=== PATIENT | male | born 1960 | race Caucasian/White ===

== ENCOUNTER 2016-04-23 02:32 | Inpatient (IN) | payer BC ==
[~2016-04-23] VITALS: Ht 188 cm; Wt 146.2 kg
--- NOTE | ~2016-04-23 | DS ---
PATIENT'S NAME: JUAN PABLO VALVERDE [facility] AGE: 55 Y [address] ROOM: [place] [address] LOCATION: GPCU ADMIT DATE: 04/23/2016 Discharge Summary DISCHARGE DATE: 04/24/2016 FAMILY PHYSICIAN: Jose Zhang MD ATTENDING PHYSICIAN: Theresa Otero PRIMARY DIAGNOSES: 1. Coronary artery disease, status post PTCI with stent. 2. Chest pain. 3. Essential hypertension. 4. Morbid obesity. 5. Generalized anxiety. 6. Tobaccoism. OPERATIONS OR PROCEDURES: Cardiac catheterization was performed on 04/23/[address] Radford with high-grade LAD lesions, status post drug-eluting stent. HISTORY OF PRESENTING ILLNESS AND REASON FOR ADMISSION: Please refer to the H and P dictated on 04/23/2016. HOSPITAL COURSE: The patient was admitted to the hospital as noted above with a presumptive diagnosis of chest pain. His laboratory markers including cardiac enzymes and EKG were initially negative. There was high clinical suspicion, however, given his classic clinical presentation and a number of risk factors. He did undergo echocardiography, which was unremarkable. He remained chest pain free over the course of his hospital stay. Cardiology was consulted and it was recommended to undergo cardiac catheterization. A high-grade proximal LAD lesion was identified as described above. PCI was performed with drug-eluting stent placement. He was placed on aspirin therapy, statin therapy, beta-yuridia therapy, and Brilinta. He tolerated that well. By the following day, he was ambulating in the hallways independently and completely asymptomatic. At that point, it was felt he would be stable enough with plans for close clinical followup, strict medication adherence, and attention to healthy lifestyle habits including quitting smoking. He did receive extensive quit-smoking counseling here. DISCHARGE INSTRUCTIONS: DIET: Cardiac prudent as tolerated. ACTIVITY: As tolerated. He will engage in outpatient cardiac rehab. MEDICATIONS: 1. Aspirin 81 mg p.o. daily. 2. Brilinta 90 mg p.o. b.i.d. 3. Atorvastatin 40 mg p.o. at bedtime. PATIENT'S NAME: JUAN PABLO VALVERDE [facility] AGE: 55 Y [address] ROOM: [place] [address] LOCATION: GPCU ADMIT DATE: 04/23/2016 Discharge Summary DISCHARGE DATE: 04/24/2016 FAMILY PHYSICIAN: Jose Zhang MD ATTENDING PHYSICIAN: Theresa Otero 4. Nicotine patch 14 mg apply and change daily. 5. Toprol-XL 12.5 mg p.o. daily. FOLLOWUP: He will follow up with Dr. Zhang in 3 to 5 days. He will have outpatient followup with Cardiology in 2 to 3 weeks. CONDITION ON DISCHARGE: Good. Total time spent on discharge process, 45 minutes. KATHY J MD GOVIND BROOKS/amol /[id number] d: 04/25/16 0636 t: 04/26/16 1451, DISCHARGE SUMMARY
--- NOTE | ~2016-04-23 | ECHO ---
Transthoracic Echocardiography Report (TTE) Demographics Patient Name JUAN PABLO VALVERDE Date of Study 04/23/2016 Patient Number [id number] Visit Number [id number] Date of 1960 Room Number G6306 Accession Number [id number] Gender Male Age 55 year(s) Referring Leatha Paniagua MD [employer] Carlos Alberto Zapata [facility] Physician Physician Interpreting Vincenzo Granados Photo Journalist Physician MD Supervising Ordering Physician Shanna Dexter MD/KIMBERLY NAGY Nurse Stress Workday Director Conclusions Contractility Score Summary Normal Left Ventricular contractility was noted. Summary Normal LV/RV size and systolic function. The estimated left ventricular ejection fraction is 60%. Diastolic assessment reveals Grade I diastolic dysfunction. Moderate concentric left ventricular hypertrophy. The left atrium is mildly dilated. Procedure Type of Study TTE procedure:2D Echocardiogram, M-Mode, Doppler , Color Doppler. Procedure Date Date: 04/23/2016 Start: 07:34 AM Study Location: Inpatient Portable Technical Quality: Adequate visualization Indications:Chest pain. Patient Status: Routine Rhythm: Within normal limits HR: 59 bpm BP: 144/85 mmHg M-Mode/2D Measurements LV Diastolic Dimension: 5.15 cm LV Systolic Dimension: 2.68 cm LV Septum Diastolic: 1.58 cm LV PW Diastolic: 1.4 cm AO Root Dimension: 2.4 cm Cardiac Output: 5.31 l/min AV Cusp Separation: 2.3 cm RV Diastolic Dimension: 2.91 cm LA volume: 108 ml LVOT: 2.4 cm RV Base: 3.74 cm LVOT VTI: 19.9 cm RV Mid: 2.98 cm LV Stroke volume: 89.98 ml TAPSE: 2.17 cm TDI-S': 11.4 cm/s Doppler Measurements AV Peak Velocity: 1.24 m/s MV Peak E-Wave: 0.59 m/s AV Peak Gradient: 6.15 mmHg MV Peak A-Wave: 0.62 m/s AV Mean Gradient: 3 mmHg MV E/A Ratio: 0.96 LVOT Peak Velocity: 1.03 m/s MV P1/2t: 59 msec TR Gradient:25 mmHg PV Peak Velocity: 1.07 m/s Estimated RAP:10 mmHg PV Peak Gradient: 4.58 mmHg Estimated RVSP: 35 mmHg Estimated PASP: 35 mmHg E' Septal Velocity: 0.06 m/s A' Septal Velocity: 0.1 m/s E' Lateral Velocity: 0.1 m/s A' Lateral Velocity: 0.15 m/s Findings Left Ventricle Diastolic assessment reveals Grade I diastolic dysfunction. Moderate concentric left ventricular hypertrophy. Right Ventricle Normal right ventricle structure and function. Left Atrium The left atrium is mildly dilated. Right Atrium Normal right atrial size. IVC measures 2.08 cm with inspiratory collapse. Mitral Valve Normal mitral valve structure and function. Trace MR. Aortic Valve Normal aortic valve structure and function. Tricuspid Valve Trivial tricuspid regurgitation by color Doppler. Pulmonic Valve Normal pulmonic valve structure and function. Pericardial Effusion No evidence of pericardial effusion. Miscellaneous Visualized portions of the aortic root and ascending aorta appear normal in size. Pleural Effusion No evidence of pleural effusion. Signature dtt: ARCENIO HESS dtd: 04/23/16 0734 Physician Self Edit
--- NOTE | ~2016-04-23 | CATH ---
Cardiac Diagnostic + PCI Report Demographics Patient Name NICOLLE Paniagua Gender Male Date of 1960 Age 55 year(s) Patient Number [id number] Date of Study 04/23/2016 Visit Number [id number] Room Number G6306 [place] [id number] Ht 187.96 cm Wt 146.51 kg Referring Leatha Paniagua MD Primary Physician Physician Performing [facility] Secondary Physician Physician Roberta NAGY Diagnostic [facility] Assisting Physician Physician Roberta NAGY Interventional [facility] Physician Scale Mechanic Physician Roberta NAGY Findings and Conclusions Diagnostic Findings and Conclusion 1 vessel obstructive CAD, proximal LAD 85% lesion in setting of unstable angina. Diagnostic Recommendations PCI of proximal LAD Interventional Findings and Conclusion s/p PCI of Prox LAD with BRIDGETT. Interventional Recommendations Aggressive medical therapy for coronary artery disease. Patient will be observed overnight. Hydration and followup creatinine. Patient has been instructed to not lift anything more than 5 pounds for 1 week. I would like to thank Dr. Dang for the opportunity to participate in the care of Mr. Gutiérrez. Dual Anti-platelet therapy. Smoking Cessation teaching and counseling done . Optimization of medical therapy as an outpatient. Referral to Cardiac Rehabilitation now and at discharge . I will plan on seeing the patient back in 2 week(s) in clinic. Procedure Description The patient was brought to the diagnostic cardiac catheterization-EP laboratory in the fasting, non-sedated state. Informed consent was obtained in the written and verbal form after the risks and benefits were explained. The patient had no further questions and agreed to proceed. The planned puncture-incision site(s) were shaved and prepped with ChloraPrep and draped in the usual sterile manner. Conscious sedation, supplemental oxygen, and pain control medications were delivered by a registered nurse under physician guidance. Surface ECG rhythm, blood pressure measurement, and pulse oximetry were monitored throughout the procedure. Arterial access. The access site was infiltrated with lidocaine. The vessel was entered with the Seldinger technique. A sheath was advanced into the vessel and used for catheter placement. Selective left coronary angiography. A catheter was advanced into the left coronary vessel ostium under Fluoroscopic guidance. Contrast was injected by hand. Images were obtained in multiple projections. Selective right coronary angiography. A catheter was advanced into the right coronary vessel ostium under fluoroscopic guidance. Contrast was injected by hand. Images were obtained in multiple projections. Left heart catheterization. A catheter was advanced across the aortic valve to the left ventricle under fluoroscopic guidance. Resting hemodynamics were obtained. Stent Placement: A guiding catheter was used to intubate the vessel. A 0.14 wire was used to cross the lesion. A Drug Eluting Stent was placed. Post placement angiograms were performed. Arterial artery hemostasis was achieved. The patient was transferred to a regular nursing floor via cart accompanied by a nurse. The patient left the laboratory in stable condition. Diagnostic Cath Status: Urgent Interventional Cath Status: Urgent Procedure Procedure Type Diagnostic procedure:Angiography:, Coronary Angios w/[facility] PCI procedure:Drug Eluting Coronary Stent:, LAD Indications: Chest pain. The procedure was explained in detail to the patient. Risks, complications and alternative treatments were reviewed. Written consent was obtained. Medications Reviewed with Patient prior to Procedure. Angiographic Findings Dominance: Right Cardiac Arteries and Lesion Findings LMCA: Normal (0% Stenosis). LAD: Abnormal.prox 85%, mid 60% diag 20% ostial Lesion on Prox LAD: Proximal subsection.85% stenosis reduced to 0%. Pre procedure BRET III flow was noted. Post Procedure BRET III flow was present. The guidewire cross was successful.A good run off was present.The lesion was diagnosed as a moderate risk lesion.Culprit lesion. Devices used - Runthrough NS .014 x 180. Number of passes: 1. - Trek Balloon 2.5 x 25. 1 inflation(s) to a max pressure of: 8 lucy. - Promus Premier 3.0 x 32 Stent. 2 inflation(s) to a max pressure of: 14 lucy. - NC Emerge Balloon 3.25 x 12. 2 inflation(s) to a max pressure of: 18 lucy. Lesion on Mid LAD: Mid subsection.60% stenosis . Lesion on 1st Diag: Ostial.20% stenosis . LCx: Abnormal.10% mid OM 10% Lesion on Prox CX: Proximal subsection.10% stenosis . Lesion on 1st Ob Bobbi: Ostial.10% stenosis . RCA: Abnormal.10% mid PL 10% PDA 30% mid Lesion on Mid RCA: Mid subsection.10% stenosis . Lesion on R PDA: Mid subsection.30% stenosis . Lesion on 1st RPL: Proximal subsection.10% stenosis . Coronary Tree Procedure Data Procedure Date Date: 04/23/2016Start: 01:23 PMEnd: 01:59 PM Entry Locations - Retrograde Percutaneous access was performed through the Right Radial artery (Primary location). A 6 Fr sheath was inserted. Hemostasis was successfully obtained using Mechanical Compression. Closure Comments: 20 cc air in r band by huan . Procedure Medications Order and Administration + + + + + !Time !Medication !Dosage !Route ! + + + + + !04/23/2016 01:13 !Versed !1 mg !I.V. ! !PM ! ! ! ! + + + + + 04/23/2016 01:26 !Radial Verapamil !2.5 mg !I.A. ! !PM ! ! ! ! + + + + + 04/23/2016 01:26 !Fentanyl !25 mcg !I.V. ! !PM ! ! ! ! + + + + + !04/23/2016 01:27 !Heparin (ACC_3) !5000 units !I.V. bolus ! !PM ! ! ! ! + + + + + 04/23/2016 01:37 !Angiomax (Bivalirudin) !110 mg !I.V. bolus ! !PM !(ACC_5) ! ! ! + + + + + 04/23/2016 01:37 !Angiomax (Bivalirudin) !1.75 mg/kg/hr!I.V. drip ! !PM !(ACC_5) ! ! ! + + + + + 04/23/2016 01:41 !Fentanyl !25 mcg !I.V. ! !PM ! ! ! ! + + + + + !04/23/2016 01:55 !Brilinta (Ticagrelor) !180 mg !P.O. ! !PM !(ACC_20) ! ! ! + + + + + Devices Used - A5 Fr. BS JR 4 Diag. Catheterwas used for:Right coronary angiography. - A5 Fr. BS JL 3.5 Diag. Catheterwas used for:Left coronary angiography. - A6 Fr. XBLAD 3.5 Guide Catheterwas used for:LAD Intervention. Contrast Material - Isovue 08562 ml Fluoroscopy Time: Diagnostic: 6:42 minutes. Total: 6:42 minutes. Fluoroscopy Dose: Diagnostic: 1230 mGy. Total: 1230 mGy. Estimated Blood Loss: 10 ml. Additional [facility] PCI Information PCI Indication:PCI for high risk Non-STEMI or unstable angina. Medical History Allergies - Other:(tetracycline). Risk Factors The patient risk factors include:obesity, physical activity, family history of premature CAD appeared at age 40, last creatinine: 0.9 mg/dl, creatinine clearance: 189.92 ml/min and Current/Recent(w/in 1 year) tobacco use. Admission Data Admission Date: 04/23/2016 Admission Time: 03:48 AM Admit Source: [facility] facility Insurance Payors: Private health insurance. Admission Medications + +------+------+---------+---------+ + + !Medication !Dosage!Times !Last !Last !Administered !Comments ! ! ! !Per !Delivery !Delivery ! ! ! ! ! !Day !Date !Time ! ! ! + +------+------+---------+---------+ + + !Aspirin (any) ! ! ! ! ! ! ! + +------+------+---------+---------+ + + !Statin (any) ! ! ! ! ! ! ! + +------+------+---------+---------+ + + !Low Molecular ! ! ! ! ! ! ! !Weight Heparin! ! ! ! ! ! ! !(any) ! ! ! ! ! ! ! + +------+------+---------+---------+ + + !Nitrates (iv ! ! ! ! ! ! ! !or buccal) ! ! ! ! ! ! ! + +------+------+---------+---------+ + + Clinical Evaluation Leading to Procedure - The patient's CAD presentation was assessed as: Unstable angina. - The patient's anginal syndrome during the past two weeks was assessed as: Class III according to the [place] Cardiovascular Society Classification System (CCS). Anti-anginal medications were prescribed during the past two weeks. The medication is: Long Acting Nitrates. - The patient has been in a state of heart failure within the past two weeks. - The patient's heart failure status was assessed as NYHA Class II. Hemodynamics Condition: Rest O2 Consumption: Estimated: 311.03Heart Rate: 67 bpm Pressures (mmHg) +-----+ + !Site !Pressure ! +-----+ + !LV !139/6 ,14 ! +-----+ + !LV !146/9 ,16 ! +-----+ + !AO !129/74 (101) ! +-----+ + !LV !146/8 ,16 ! +-----+ + !AO !151/98 (116) ! +-----+ + Valve Gradients and Areas + +---------+---------+---------+ +---------+ + !Valve !Peak !Mean !Area !Index !Flow !Source ! + +---------+---------+---------+ +---------+ + !Aortic !18 !14 ! ! ! ! ! + +---------+---------+---------+ +---------+ + !Aortic !18 !14 ! ! ! ! ! + +---------+---------+---------+ +---------+ + Shunts Oxygen Values O2 Capacity 213.52 O2 Consumption 311.03 Signatures dtt: ROBERTA HESS dtd: 04/23/16 1323 Physician Self Edit
--- NOTE | ~2016-04-23 | CON ---
PATIENT'S NAME: JUAN PABLO VALVERDE [facility] AGE: 55 Y [address] ROOM: [place] [address] LOCATION: GPCU ADMIT DATE: 04/23/2016 Consultation DISCHARGE DATE: FAMILY PHYSICIAN: Jose Zhang MD ATTENDING PHYSICIAN: KHANH BANUELOS DATE OF CONSULTATION: 04/23/2016 REFERRING PHYSICIAN: ARCENIO HESS MD CARDIOLOGY CONSULTATION REQUESTING PROVIDER: Dr. Dang. REASON FOR CONSULTATION: Unstable angina. HISTORY OF PRESENTING ILLNESS: The patient is a very pleasant, 55-year-old male, who is obese. He has a family history of premature coronary artery disease and extensive tobacco use. The patient reports he has had about 6 episodes of chest tightness over the past 48 hours, off and on. One of them was quite severe and lasted about 15 minutes, and it radiates to the jaw as well as to the left arm and associated with dizziness, and finally ended up coming to the emergency room. He does not have any other chest pain at this time. He ruled out IL. CPK and troponin are okay. He reports that prior to this episode, he has never had anything similar to the episodes of chest pain. He currently has no shortness of breath. No PND, orthopnea, or significant lower extremity edema. He does have recurrent episodes of prostatitis for which he takes Bactrim. He also reports snoring at night and feeling very fatigued. He does have daytime headaches off and on. He also reports significant fatigue over the past week. He has been exerting as usual. No unusual activity. No nausea or vomiting. Good appetite. He initially presented to [facility] with chest tightness and then he ended up transferring here for further workup. REVIEW OF SYSTEMS: A 10-point review of systems was discussed with the patient and pertinent positives and negatives mentioned in the history of presenting illness. HOME MEDICATIONS: BuSpar, Cymbalta, and Bactrim for prostatitis. PAST MEDICAL HISTORY: Prostatitis, arthritis, and anxiety. SOCIAL HISTORY: A 45 pack-year smoking history. No alcohol or illicit drug abuse. He is a PATIENT'S NAME: JUAN APBLO VALVERDE [facility] AGE: 55 Y [address] ROOM: [place] [address] LOCATION: [facility] ADMIT DATE: 04/23/2016 Consultation DISCHARGE DATE: FAMILY PHYSICIAN: Jose Zhang MD ATTENDING PHYSICIAN: KHANH BANUELOS A sound truck operator. FAMILY HISTORY: Positive for premature coronary artery disease. His father had a heart attack in his 40s. PHYSICAL EXAMINATION: VITAL SIGNS: His blood pressure is 136/94, afebrile, 97.8, pulse is 76, O2 sats are 94% on room air, and respirations are 16. GENERAL: The patient is not in any apparent distress. He is alert and oriented x3. HEENT: Head; atraumatic and normocephalic. Eyes; no xanthelasmas. Sclerae white. Mucous membranes are moist. NECK: Supple. HEART: S1 and S2. Regular rate and rhythm. No murmurs, gallops, or rubs. LUNGS: Clear to auscultation bilaterally. ABDOMEN: Obese. Nondistended. Bowel sounds positive. EXTREMITIES: No significant lower extremity edema. NEUROLOGIC: Able to move all extremities against gravity. MUSCULOSKELETAL: No joint tenderness or muscle aches. PSYCHIATRIC: Normal affect and mood. LABORATORY AND IMAGING DATA: EKG; sinus bradycardia, no significant ST depression suggestive of ischemia. Chest x-ray, no acute cardiopulmonary process. Labs: Sodium 140, potassium 4.1, chloride 108, CO2 of 24, BUN 11, creatinine 0.9, glucose 98, triglycerides 152, and LDL 68. A1c 5.9, and TSH 2.1. Echocardiogram, normal LV systolic function, mild diastolic dysfunction, mild left atrial enlargement, and no significant valvular disease. IMPRESSION AND PLAN: 1. Unstable angina. 2. Morbid obesity. 3. History of tobacco use. PLAN: 1. Plan at this time given his recurrent episodes of typical anginal symptoms with chest tightness on the left side radiating to the arm as well as the jaw and lasting for about 10 to 15 minutes and having about 6 episodes in the last 2 days. At this point, he does meet criteria for new-onset chest discomfort as well as recurrent chest pain very suggestive of unstable angina. The best way to proceed at this time would be a heart catheterization and possible percutaneous coronary intervention (PCI). If he has a moderate stenosis, then we will do fractional flow reserve (FFR) at that time. He does not have any bleeding issues, and he PATIENT'S NAME: JUAN PABLO VALVERDE [facility] AGE: 55 Y [address] ROOM: [place] [address] LOCATION: [facility] ADMIT DATE: 04/23/2016 Consultation DISCHARGE DATE: FAMILY PHYSICIAN: Jose Zhang MD ATTENDING PHYSICIAN: KHANH BANUELOS is a good candidate for dual antiplatelet therapy (DAPT) if it is necessary. 2. Morbid obesity. Reiterated about the importance of dietary restriction. 3. Reiterated the importance of abstaining from tobacco and that this increases the risk of heart attacks and strokes as well as several cancers. He does have some symptoms of snoring as well as fatigue and daytime headaches, consider outpatient evaluation for obstructive sleep apnea. Thank you very much for allowing us to participate in the care of Mr. Juan Pablo Valverde. ARCENIO HESS MD AT/modl /[id number] d: 04/23/16 1845 t: 04/24/16 1519, CONSULTATION REPORT
--- NOTE | ~2016-04-23 | HP ---
PATIENT'S NAME: JUAN PABLO VALVERDE [facility] [place] AGE: 55 Y [address] ROOM: [address] [address] LOCATION: GPCU ADMIT DATE: 04/23/2016 History & Physical DISCHARGE DATE: FAMILY PHYSICIAN: Jose Zhang MD ATTENDING PHYSICIAN: KHANH BANUELOS DATE OF SERVICE: CHIEF COMPLAINT: Chest pain. HISTORY OF PRESENT ILLNESS: 55-year-old gentleman with past medical history of arthritis, presented to [facility] with chest tightness, which started yesterday sudden in onset, located on the left side 6 x 10 radiates to the neck as well as arms associated with numbness as well as dizziness lasted for 15-20 minutes, multiple episodes during the day. This is also associated with some degree of shortness of breath as well as jaw numbness. He never experienced this kind of symptoms before. On further inquiry, he denied having any headache, any trouble with the eyes, any trouble swallowing, any palpitations, any cough, any sputum production, any recent runny nose or teary eyes , abdominal pain, constipation, diarrhea, or extremity swelling. He denied PND, orthopnea, or leg swelling. REVIEW OF SYSTEMS: All other systems reviewed and were negative except what is mentioned in the HPI. MEDICATIONS: He takes: 1. Buspirone. 2. Cymbalta. 3. As well as chronic Bactrim for his prostatitis. PAST MEDICAL HISTORY: Prostatitis, arthritis, anxiety disorder. SOCIAL HISTORY: 45+ pack year smoking history. No alcohol or drug abuse. He drives a truck. FAMILY HISTORY: Positive for premature coronary artery disease in dad, who experienced heart attack in his late 40s. ALLERGIES: THE PATIENT IS ALLERGIC TO TETRACYCLINE. PATIENT'S NAME: JUAN PABLO VALVERDE [facility] [place] AGE: 55 Y [address] ROOM: [address] [address] LOCATION: GPCU ADMIT DATE: 04/23/2016 History & Physical DISCHARGE DATE: FAMILY PHYSICIAN: Jose Zhang MD ATTENDING PHYSICIAN: KHANH BANUELOS PHYSICAL EXAMINATION: VITAL SIGNS: 153/86, 60, 12, afebrile. GENERAL: In no acute distress. Alert and orientated x3. HEAD: Atraumatic, normocephalic. Eyes; nonicteric. No pallor. Oropharynx; moist mucous membranes. CARDIOVASCULAR: S1 and S2. No murmur, gallops, or rubs. LUNGS: Clear to auscultation bilaterally. ABDOMEN: Obese, nontender, nondistended. Bowel sounds are present. EXTREMITIES: No clubbing, cyanosis, or edema. NEUROLOGIC: Cranial nerves 2 through 12 intact. No motor or sensory deficit. MUSCULOSKELETAL: No muscle tenderness or joint tenderness noted. PSYCH: Normal affect, mood, and speech. LABORATORY DATA: EKG done at the [facility] and here showed sinus bradycardia without any ST-T wave changes. Chest x-ray done here did not reveal any acute infiltrate. Lab work from [facility] and done at [facility] did not reveal any abnormal findings including troponins and a BNP. ASSESSMENT: 1. Unstable angina. 2. Morbid obesity. 3. Tobaccoism. 4. Arthritis. PLAN: We will admit this patient for observation. He has already been given aspirin as well as Lipitor. We will hold on the beta-blockers given low heart rates at this point. We will get echocardiography today and possibly a stress test as well. Cardiology consultation can be considered by the morning team. SCDs as well as Lovenox for DVT prophylaxis. Of note, his D-dimer was negative at the other facility ruling out pulmonary embolism. A CAT scan of the head was also done to evaluate this numbness, which was also unremarkable. The patient is full code. MD JOANNA BETANCOURT/amol /[id number] D: [id number] T: 625 HISTORY & PHYSICAL
--- NOTE | 2016-04-23 04:32 | NUR ---
Patient admitted at 0405 from [place]. Stated around 1999 last night the bottom half of his face went numb and then his left hand went completely numb. Sensation returned but numbness occurred 6 more times. He also reported chest tightness at this time and then after a shower, became dizzy. Hx of anxiety, shingles, concussion, numbness/tingling left arm, heartburn and treated ezcema on bilateral posterior legs. Refuses flu vaccine. High risk VTE. Allergy to bananas, tetracyclines and minocycline. at bedside. Home meds will need to be addressed with pharmacy in am
[2016-04-23 04:40] LABS: BASOPHIL # 0.1 K/uL (0.0-0.2); BASOPHIL % 0.6 %; EOSINOPHIL # 0.2 K/uL (0.0-0.5); EOSINOPHIL % 2.2 %; HEMATOCRIT 45.9 % (37.0-53.0); HEMOGLOBIN 15.7 g/dL (12.0-17.0); IMMATURE GRANULOCYTE % 0.2 %; LYMPHOCYTE # 3.9 K/uL (0.8-4.0); LYMPHOCYTE % 45.6 %; MCH 32.1 pg (27.0-34.0); MCHC 34.2 gm/dL (32.0-36.5); MCV 93.9 fl (83.0-98.0); MONOCYTE # 0.8 K/uL (0.0-1.0); MONOCYTE % 9.3 %; MPV 9.4 fl (9.4-12.4); NEUTROPHIL # (ANC) 3.6 K/uL (1.4-9.0); NEUTROPHIL % 42.1 %; NRBC % 0 /100WBC (0-0.00); PLATELET COUNT 273 K/uL (150-450); RBC 4.89 M/uL (4.00-6.00); RDW-CV 11.9 % (11.9-14.6); WBC 8.5 K/uL (4.0-11.0)
--- NOTE | 2016-04-23 04:47 | NUR ---
Patient is from [place] and was having chest pain, dizziness, and nausea. Went to ER in [place] and was referred here, he refused transport and his brought him here private car. All cardiac work up so far negative. On admission he is A/Ox3. VSS on RA. Does complain of dizziness still and chest pressure 1/10. Lungs clear. Bowel sounds present. No skin issues. IV to RT wrist saline locked. Dr Otero to see patient.
[2016-04-23 04:59] LABS: ALBUMIN 3.6 gm/dL (3.5-5.0); ALK PHOS 71 IU/L (33-138); ALT 33 IU/L (12-78); ANION GAP 12.1 (10.0-19.0); AST 13 IU/L (10-40); BLOOD UREA NITROGEN 11 mg/dL (6-24); CALCIUM 8.4 mg/dL (8.5-10.5); CHLORIDE 108 mMol/L (96-110); CO2 24 mMol/L (22-32); CREATININE 0.9 mg/dL (0.6-1.3); ESTIMATED GFR (MDRD EQUATION) > 60; POTASSIUM 4.1 mMol/L (3.7-5.1); SODIUM 140 mMol/L (135-145); TOTAL BILIRUBIN 0.3 mg/dL (0.0-1.5); TOTAL PROTEIN 6.7 g/dL (6.0-8.4)
[2016-04-23 16:06] LABS: CPK 84 IU/L (35-332)
[2016-04-23] MEDS ORDERED: CLARITIN D 24HR1 TAB PO (16:32)
[2016-04-23] MEDS ORDERED: CYMBALTA30 MG PO (16:33)
[2016-04-23] MEDS ORDERED: BUSPAR10 MG PO ×2 (16:33)
[2016-04-23] MEDS ORDERED: BACTRIM DS1 TAB PO (16:33)
[2016-04-23] MEDS ORDERED: COLON HEALTH PO (16:34)
[2016-04-23] MEDS ORDERED: ADVIL200 MG PO (16:34)
[2016-04-23] MEDS ORDERED: FLONASE 50 MCG/16 GM NOSE (16:34)
--- NOTE | 2016-04-23 17:44 | NUR ---
Significant Event: HRT CATH AT 1300 TODAY, STENT TO THE LAD, RT RADIAL, COMPRESSION BAND OFF, BAND AID AND COBAND INTACT TO RT WRIST, DRESSING AND WRIST CDI. NO BRIUSING, HEMATOMA OR SWELLING Follow up: [facility]
[2016-04-24 02:37] LABS: BASOPHIL # 0.1 K/uL (0.0-0.2); BASOPHIL % 0.7 %; EOSINOPHIL # 0.2 K/uL (0.0-0.5); EOSINOPHIL % 1.7 %; HEMATOCRIT 47.6 % (37.0-53.0); HEMOGLOBIN 15.6 g/dL (12.0-17.0); IMMATURE GRANULOCYTE % 0.2 %; LYMPHOCYTE # 3.4 K/uL (0.8-4.0); LYMPHOCYTE % 33.4 %; MCH 31.3 pg (27.0-34.0); MCHC 32.8 gm/dL (32.0-36.5); MCV 95.6 fl (83.0-98.0); MONOCYTE # 0.9 K/uL (0.0-1.0); MONOCYTE % 9.1 %; MPV 9.7 fl (9.4-12.4); NEUTROPHIL # (ANC) 5.5 K/uL (1.4-9.0); NEUTROPHIL % 54.9 %; NRBC % 0 /100WBC (0-0.00); PLATELET COUNT 272 K/uL (150-450); RBC 4.98 M/uL (4.00-6.00); RDW-CV 11.9 % (11.9-14.6); WBC 10.1 K/uL (4.0-11.0)
[2016-04-24 03:01] LABS: ALBUMIN 3.5 gm/dL (3.5-5.0); ALK PHOS 73 IU/L (33-138); ALT 36 IU/L (12-78); AST 19 IU/L (10-40); BLOOD UREA NITROGEN 11 mg/dL (6-24); CALCIUM 8.3 mg/dL (8.5-10.5); CHLORIDE 109 mMol/L (96-110); CO2 25 mMol/L (22-32); CREATININE 0.9 mg/dL (0.6-1.3); ESTIMATED GFR (MDRD EQUATION) > 60; SODIUM 142 mMol/L (135-145); TOTAL PROTEIN 6.7 g/dL (6.0-8.4)
[2016-04-24 03:06] LABS: TOTAL BILIRUBIN 0.4 mg/dL (0.0-1.5)
--- NOTE | 2016-04-24 04:46 | NUR ---
Significant Event: A/O x3. Afebrile. Denies pain. Up ad britany. Walked in loya x1. VSS on RA. Rt wrist coban/gauze c/d/i. SBP 120-150s. Cooperative with cares. Follow up: Discharge to home today.
[2016-04-24] MEDS ORDERED: ASPIRIN EC81 MG PO (10:18)
[2016-04-24] MEDS ORDERED: LIPITOR40 MG PO (10:19)
[2016-04-24] MEDS ORDERED: NICODERM / HABIT7 MG TOP (10:20)
[2016-04-24] MEDS ORDERED: BRILINTA90 MG PO (10:21)
[2016-04-24] MEDS ORDERED: TOPROL XL25 MG PO (10:22)
--- NOTE | 2016-04-24 11:15 | NUR ---
d-dr reaves pt dc i-nurse did teaching on all meds with new ones explained and info printed, teaching on cath/radial cares, pt states felt good up loya and does well no c/o pain, r)radial site normal with coban intact to remove tonight apply bandaid, rx given, samples of brillinta given, ivd dcd intact, r-pt and state understanding p-dc per wc by sangeeta miranda to care
== END 2016-04-24 11:30 | disposition disaster alternative care site (69) | DRG 247 ==
LOC: GPCU 02:32
PROVIDERS: Internal Medicine Interventional Cardiology; ADMIT Internal Medicine
PROC: 4A023N7 Measurement of Cardiac Sampling and Pressure, Left Heart, Percutaneous Approach (ICD-10-PCS; principal; 2016-04-23)
PROC: 027034Z Dilation of Coronary Artery, One Artery with Drug-eluting Intraluminal Device, Percutaneous Approach (ICD-10-PCS; principal; 2016-04-23)
PROC: B2111ZZ Fluoroscopy of Multiple Coronary Arteries using Low Osmolar Contrast (ICD-10-PCS; principal; 2016-04-23)
DX: I25.110 Atherosclerotic heart disease of native coronary artery with unstable angina pectoris (principal); Z68.41 Body mass index [BMI] 40.0-44.9, adult; R00.1 Bradycardia, unspecified; E66.01 Morbid (severe) obesity due to excess calories; Z82.49 Family history of ischemic heart disease and other diseases of the circulatory system; N41.1 Chronic prostatitis; F17.200 Nicotine dependence, unspecified, uncomplicated; M19.90 Unspecified osteoarthritis, unspecified site; F41.1 Generalized anxiety disorder
CPT/HCPCS: C1725; C1769; C1874; C1887; C9600; J0583; J1644; J1650; J2250; J3010; J7030; J7060